=== PATIENT | female | born 1950 | race Two or more races ===

== ENCOUNTER 2017-03-20 12:12 | Inpatient (IN) | payer MEDICARE, MEDICAID ==
[~2017-03-20] VITALS: Ht 152.4 cm; Wt 81.6 kg
[2017-03-20] MEDS ORDERED: OXYCODONE HCL 10 MG TAB.SR.12H PO SCH (12:45)
[2017-03-20] MEDS ORDERED: FOLI0.4T2 PO (13:11)
[2017-03-20] MEDS ORDERED: MICO45CR11 VG (13:11)
[2017-03-20] MEDS ORDERED: GABA-534 PO (13:11)
[2017-03-20] MEDS ORDERED: CLOP75TA2 PO (13:11)
[2017-03-20] MEDS ORDERED: TRAZ-144 PO (13:11)
[2017-03-20] MEDS ORDERED: ALBU1.257 NEB (13:11)
[2017-03-20] MEDS ORDERED: QUET25TA PO (13:11)
[2017-03-20] MEDS ORDERED: METO25TA6 PO (13:11)
[2017-03-20] MEDS ORDERED: OMEP20CA10 PO (13:11)
[2017-03-20] MEDS ORDERED: DICL100G3 TP (13:11)
[2017-03-20] MEDS ORDERED: ALBU18HF2 IH (13:11)
[2017-03-20] MEDS ORDERED: POTA20TA83 PO (13:11)
[2017-03-20] MEDS ORDERED: FENT1PAT22 TP (13:11)
[2017-03-20] MEDS ORDERED: ATOR20TA PO (13:11)
[2017-03-20] MEDS ORDERED: METF500T4 PO (13:11)
[2017-03-20] MEDS ORDERED: LORA0.5T PO (13:11)
[2017-03-20] MEDS ORDERED: IPRA0.2S6 NEB (13:11)
[2017-03-20] MEDS ORDERED: GUAI480S10 PO (13:11)
[2017-03-20] MEDS ORDERED: CYCL-343 PO (13:11)
[2017-03-20] MEDS ORDERED: CYAN10006 IM (13:11)
[2017-03-20] MEDS ORDERED: ZOLP5TAB2 PO (13:11)
[2017-03-20] MEDS ORDERED: FLUO40CA8 PO (13:11)
[2017-03-20] MEDS ORDERED: ACET-2067 PO (13:11)
[2017-03-20] MEDS ORDERED: IV NORMAL SALINE 1000 ML BAG IV ONE (13:15)
--- NOTE | 2017-03-20 13:21 | NUR ---
Dr Hdez at bedside talking with pt.
[2017-03-20 13:29] LABS: BASOPHILS # (AUTO) 0.1 K/uL (0.0-8.0); BASOPHILS % (AUTO) 0.7 % (0.0-2.0); CREATININE 0.7 mg/dL (0.6-1.3); EOSINOPHILS # (AUTO) 0.2 K/uL (0.0-0.7); EOSINOPHILS % (AUTO) 2.7 % (0.0-7.0); HEMATOCRIT 42.9 % (37-47); HEMOGLOBIN 13.7 G/DL (12.0-16.0); LYMPHOCYTES # (AUTO) 2.8 K/UL (0.8-4.8); LYMPHOCYTES % (AUTO) 31.2 % (20.5-51.5); MEAN CORPUSCULAR HEMOGLOBIN 27.5 UUG (27.0-31.0); MEAN CORPUSCULAR HGB CONC 32 g/dL (32.0-37.0); MONOCYTES # (AUTO) 0.5 K/UL (0.1-1.30); MONOCYTES % (AUTO) 5.1 % (0.0-11.0); NEUTROPHILS # (AUTO) 5.4 K/UL (1.8-8.9); NEUTROPHILS % (AUTO) 60.3 % (38.5-71.5); PLATELET COUNT (AUTO) 310 K/UL (150-450); RED BLOOD CELL COUNT(AUTO) 4.99 MIL/UL (4.2-5.4)
[2017-03-20 13:35] LABS: BILIRUBIN,DIRECT 0.1 mg/dL (0.0-0.2); BILIRUBIN,TOTAL 0.3 mg/dL (0.2-1.0); TOTAL PROTEIN, SERUM 7.7 g/dL (6.4-8.2)
[2017-03-20 16:05] VITALS: BP 128/78
--- NOTE | 2017-03-20 16:15 | NUR ---
pt received from er via wheel chair for chest pain and failure to thrive,pt is axox4.orient the pt to room and surroundings , called for orders.
[2017-03-20] MEDS ORDERED: DEXTROSE 50% 50 ML DISP.SYRIN IV PRN (17:30)
[2017-03-20] MEDS ORDERED: ACETAMINOPHEN 325 MG TABLET PO PRN (18:00)
[2017-03-20] MEDS ORDERED: ALBUTEROL SULFATE 8 GM HFA.AER.AD IH PRN (18:00)
[2017-03-20] MEDS ORDERED: GUAIFENESIN/DEXTROMETHORPHAN 5 ML UDC PO PRN (18:00)
[2017-03-20] MEDS ORDERED: IPRATROPIUM BROMIDE 0.5 MG/2.5 ML NEBU NEB PRN (18:00)
[2017-03-20] MEDS ORDERED: ALBUTEROL SULFATE 1.25 MG/3 ML NEBU NEB PRN (18:00)
[2017-03-20] MEDS ORDERED: HOME MED MISCELLANEOUS TP PRN (18:00)
[2017-03-20] MEDS: METFORMIN HCL 500 MG TABLET PO SCH (18:25)
[2017-03-20 20:00] VITALS: BP 119/52
[2017-03-20] MEDS: QUETIAPINE FUMARATE 25 MG TABLET PO SCH (20:49)
[2017-03-20] MEDS: TRAZODONE 50 MG TABLET PO SCH (20:50)
[2017-03-20] MEDS: ZOLPIDEM 5 MG TABLET PO SCH (20:53)
[2017-03-20] MEDS ORDERED: ATORVASTATIN 20 MG TABLET PO SCH (21:00)
[2017-03-20] MEDS: CYCLOBENZAPRINE HCL 10 MG TABLET PO SCH (21:05)
[2017-03-20] MEDS: BLOOD SUGAR DIAGNOSTIC 1 EACH STRIP VI SCH (21:06)
[2017-03-20] MEDS: METOPROLOL TARTRATE 25 MG TABLET PO SCH (21:13)
[2017-03-20 23:51] LABS: *BILIRUBIN,URIN NEGATIVE (NEGATIVE); *BLOOD, URINE NEGATIVE (NEGATIVE); *CLARITY,URINE CLEAR (CLEAR); *COLOR,URINE YELLOW (YELLOW); *KETONES,URINE NEGATIVE (NEGATIVE); *PROTEIN,URINE NEGATIVE (NEGATIVE); *UROBILINOGEN,URINE 0.2 E.U./dl (NORMAL); LEUKOCYTE ESTERASE ,URINE NEGATIVE (NEGATIVE); NITRITE, URINE NEGATIVE (NEGATIVE); PH,URINE 7.5 (5.0-8.0); UGLUCOSE NEGATIVE (NEGATIVE)
[2017-03-21] VITALS: BP 119/87
[2017-03-21 00:52] LABS: BACTERIA,URINE NONE SEEN /HPF (NONE SEEN); RBC,URINE 0-3 /HPF (0-3); SQUAMOUS EPITHELIAL CELL,UR FEW /HPF (NONE SEEN); WBC,URINE NONE SEEN /HPF (0-3)
[2017-03-21 04:00] VITALS: BP 106/62
--- NOTE | 2017-03-21 05:52 | NUR ---
PATIENT SLEPT WELL, IN NO ACUTE DISTRESS. ACCUCHECKS ORDERED, NO EPISODES OF HYPO/HYPERGLYCEMIA NOTED. AMBULATES TO THE BATHROOM WITH ASSISTANCE, C/O OF KNEE PAIN. BREATHING TX PROVIDED ORDERED. URINE SPECIMEN SENT TO THE LAB. INSTRUCTED PATIENT TO USE CALL LIGHT WHEN ASSISTANCE IS NEEDED, PT VERBALIZED UNDERSTANDING. BED ALARM ON, WILL CONTINUE TO MONITOR.
[2017-03-21] MEDS: PANTOPRAZOLE SODIUM 40 MG TABLET.DR PO SCH (06:11)
[2017-03-21] MEDS: BLOOD SUGAR DIAGNOSTIC 1 EACH STRIP VI SCH ×4 (06:41→21:12)
[2017-03-21 06:48] LABS: BASOPHILS % (AUTO) 0.6 % (0.0-2.0); EOSINOPHILS # (AUTO) 0.2 K/uL (0.0-0.7); EOSINOPHILS % (AUTO) 3.6 % (0.0-7.0); HEMATOCRIT 39.1 % (37-47); HEMOGLOBIN 12.2 G/DL (12.0-16.0); LYMPHOCYTES # (AUTO) 2.8 K/UL (0.8-4.8); LYMPHOCYTES % (AUTO) 47.1 % (20.5-51.5); MEAN CORPUSCULAR HEMOGLOBIN 26.9 UUG (27.0-31.0); MEAN CORPUSCULAR HGB CONC 31 g/dL (32.0-37.0); MEAN CORPUSCULAR VOLUME 85.8 FL (81.0-99.0); MONOCYTES # (AUTO) 0.4 K/UL (0.1-1.30); NEUTROPHILS # (AUTO) 2.4 K/UL (1.8-8.9); NEUTROPHILS % (AUTO) 41.7 % (38.5-71.5); PLATELET COUNT (AUTO) 285 K/UL (150-450); RED BLOOD CELL COUNT(AUTO) 4.55 MIL/UL (4.2-5.4)
[2017-03-21 06:51] LABS: THYROID STIMULATING HORMONE 0.367 mIU/mL (0.358-3.740)
[2017-03-21 06:52] LABS: WHITE BLOOD COUNT (AUTO) 5.8 K/UL (4.0-11.2)
[2017-03-21 07:07] LABS: BILIRUBIN,TOTAL 0.6 mg/dL (0.2-1.0); CREATININE 0.7 mg/dL (0.6-1.3); MAGNESIUM 1.7 mg/dL (1.8-2.4); PHOSPHOROUS 3.9 mg/dL (2.5-4.9); TOTAL PROTEIN, SERUM 6.8 g/dL (6.4-8.2)
--- NOTE | 2017-03-21 08:14 | NUR ---
Patient reports 8/10 chest pain. Patient has history of ID and stent placement. Paged for orders. Dr. Dubon public relations analyst.
[2017-03-21] MEDS ORDERED: NITROGLYCERIN 0.3 MG/TAB BOTTLE SL STA ×2 (08:28→08:31)
[2017-03-21] MEDS: METFORMIN HCL 500 MG TABLET PO SCH ×2 (08:28→17:59)
[2017-03-21] MEDS: FOLIC ACID 0.4 MG TABLET PO SCH (08:32)
[2017-03-21] MEDS: CYCLOBENZAPRINE HCL 10 MG TABLET PO SCH ×2 (08:32→20:26)
[2017-03-21] MEDS: LORAZEPAM 0.5 MG TABLET PO SCH (08:32)
[2017-03-21] MEDS: METOPROLOL TARTRATE 25 MG TABLET PO SCH ×2 (08:44→20:27)
[2017-03-21] MEDS: POTASSIUM CHLORIDE 20 MEQ TAB.PRT.SR PO SCH (08:45)
[2017-03-21] MEDS: GABAPENTIN 300 MG CAPSULE PO SCH ×3 (08:45→17:56)
[2017-03-21] MEDS: MICONAZOLE NITRATE 2% VAG CREA 45 GM TUBE VG SCH ×2 (08:46→17:50)
[2017-03-21] MEDS: FLUOXETINE HCL 20 MG CAPSULE PO SCH (08:46)
[2017-03-21] MEDS: CLOPIDOGREL 75 MG TABLET PO SCH (08:46)
[2017-03-21] MEDS ORDERED: LORAZEPAM 0.5 MG TABLET PO SCH (09:00)
[2017-03-21] MEDS ORDERED: HOME MED MISCELLANEOUS PO SCH (09:00)
--- NOTE | 2017-03-21 09:00 | NUR ---
Patient chest pain has improved. Nitroglycerin given. Patient however continues to experience tailbone pain.
[2017-03-21] MEDS: INSULIN REGULAR, HUMAN 300 UNIT/3 ML VIAL SQ PRN (12:03)
[2017-03-21] MEDS: OXYCODONE HCL 5 MG TABLET PO PRN ×3 (12:09→21:13)
[2017-03-21 12:35] VITALS: BP 142/83
[2017-03-21 16:00] VITALS: BP 125/66
[2017-03-21] MEDS: MAGNESIUM SULFATE/D5W 100 ML IV SCH ×2 (16:35→17:50)
[2017-03-21 19:00] VITALS: BP 107/51
[2017-03-21] MEDS: QUETIAPINE FUMARATE 25 MG TABLET PO SCH (20:26)
[2017-03-21] MEDS: ZOLPIDEM 5 MG TABLET PO SCH (20:27)
[2017-03-21] MEDS: TRAZODONE 50 MG TABLET PO SCH (20:27)
[2017-03-21] MEDS: ATORVASTATIN 40 MG TABLET PO SCH (21:12)
[2017-03-21 23:59] VITALS: BP 114/55
[2017-03-22 04:00] VITALS: BP 118/60
[2017-03-22] MEDS: OXYCODONE HCL 5 MG TABLET PO PRN ×4 (04:56→20:30)
[2017-03-22] MEDS: PANTOPRAZOLE SODIUM 40 MG TABLET.DR PO SCH (04:57)
[2017-03-22] MEDS: BLOOD SUGAR DIAGNOSTIC 1 EACH STRIP VI SCH ×4 (06:09→20:31)
[2017-03-22 07:09] LABS: CREATININE 0.7 mg/dL (0.6-1.3); MAGNESIUM 1.7 mg/dL (1.8-2.4); POTASSIUM 4.2 mmol/L (3.5-5.1)
--- NOTE | 2017-03-22 07:41 | NUR ---
pt received in bed awake.pt is axox4.breakfast served.v/s are stable.
[2017-03-22] MEDS: FOLIC ACID 0.4 MG TABLET PO SCH (08:03)
[2017-03-22] MEDS: POTASSIUM CHLORIDE 20 MEQ TAB.PRT.SR PO SCH (08:03)
[2017-03-22] MEDS: METFORMIN HCL 500 MG TABLET PO SCH ×2 (08:03→17:17)
[2017-03-22] MEDS: CLOPIDOGREL 75 MG TABLET PO SCH (08:03)
[2017-03-22] MEDS: LORAZEPAM 0.5 MG TABLET PO SCH (08:03)
[2017-03-22] MEDS: METOPROLOL TARTRATE 25 MG TABLET PO SCH ×2 (08:04→20:35)
[2017-03-22] MEDS: GABAPENTIN 300 MG CAPSULE PO SCH ×3 (08:04→16:05)
[2017-03-22] MEDS: FLUOXETINE HCL 20 MG CAPSULE PO SCH (08:04)
[2017-03-22] MEDS: MICONAZOLE NITRATE 2% VAG CREA 45 GM TUBE VG SCH ×2 (08:04→16:05)
[2017-03-22] MEDS: CYCLOBENZAPRINE HCL 10 MG TABLET PO SCH ×2 (08:04→20:33)
[2017-03-22] MEDS ORDERED: FENTANYL 50 MCG/HR PATCH TD SCH (09:00)
[2017-03-22] MEDS: INSULIN REGULAR, HUMAN 300 UNIT/3 ML VIAL SQ PRN (10:37)
[2017-03-22] MEDS: MAGNESIUM SULFATE/D5W 100 ML IV SCH ×2 (11:08→12:00)
[2017-03-22 11:38] VITALS: BP_SYST 110; BP_SYST 119; BP_DIAS 57; BP_DIAS 75
[2017-03-22] MEDS ORDERED: MAGNESIUM SULFATE/D5W 100 ML IV SCH (12:15)
--- NOTE | 2017-03-22 14:30 | NUR ---
The patient's discharge plan is to go to [facility] [ - Nadia - ; ; [facility], [place] [address]] via [facility]. Spoke to Nadia, admissions from [facility], and she confirmed that they will admit the patient once stable. The patient is aware and in agreement with her discharge plan. Nadia is requesting to be called once the discharge is certain. Udpated the electrical discharge machine operator, Lucita.
[2017-03-22 16:10] VITALS: BP 133/71
[2017-03-22 20:00] VITALS: BP 135/78
--- NOTE | 2017-03-22 20:00 | NUR ---
RECEIVED PATIENT AWAKE IN BED. A/O X4. PATIENT IS UPSET REGARDING PAIN MEDICATION. C/O PAIN, GENERALIZED 5/10. NO RESP. DISTRESS NOTED. VSS. HEPLOCK NOTED TO LEFT FA #20 GAUGE. CALL LIGHT IN REACH, ALL NEEDS ATTENDED. WILL CONTINUE TO MONITOR.
--- NOTE | 2017-03-22 20:30 | NUR ---
PATIENT GIVEN OXYIR 5MG PO PRN ORDERED FOR PAIN. WILL CONTINUE TO MONITOR. ALL NEEDS ATTENDED.
[2017-03-22] MEDS: TRAZODONE 50 MG TABLET PO SCH (20:31)
[2017-03-22] MEDS: ATORVASTATIN 40 MG TABLET PO SCH (20:33)
[2017-03-22] MEDS: QUETIAPINE FUMARATE 25 MG TABLET PO SCH (20:35)
[2017-03-22] MEDS: ZOLPIDEM 5 MG TABLET PO SCH (20:51)
--- NOTE | 2017-03-22 22:00 | NUR ---
PATIENT ASLEEP. NO RESP. DISTRESS NOTED. NO S/S OF PAIN OR DISCOMFORT. CALL LIGHT IN REACH. ALL NEEDS ATTENDED. WILL CONTINUE TO MONITOR.
[2017-03-23 05:20] VITALS: BP 114/62
--- NOTE | 2017-03-23 05:49 | NUR ---
PATIENT ASLEEP IN BED. EASILY AROUSABLE. SLEPT WELL THROUGHOUT THE NIGHT. VSS. CALL LIGHT IN REACH. ALL NEEDS ATTENDED. WILL CONTINUE TO MONITOR.
[2017-03-23] MEDS: PANTOPRAZOLE SODIUM 40 MG TABLET.DR PO SCH (06:07)
[2017-03-23] MEDS: BLOOD SUGAR DIAGNOSTIC 1 EACH STRIP VI SCH ×2 (06:24→10:52)
--- NOTE | 2017-03-23 07:30 | NUR ---
PT RECEIVED IN BED AWAKE.V/S ARE STABLE ,NO C/O PAIN NOTED,V/S ARE STABLE/ASSESSMENT DONE.
[2017-03-23 07:43] LABS: CREATININE 0.8 mg/dL (0.6-1.3); MAGNESIUM 1.8 mg/dL (1.8-2.4); POTASSIUM 4.1 mmol/L (3.5-5.1)
[2017-03-23] MEDS: OXYCODONE HCL 5 MG TABLET PO PRN ×2 (07:44→12:28)
[2017-03-23] MEDS: CYCLOBENZAPRINE HCL 10 MG TABLET PO SCH (08:01)
[2017-03-23] MEDS: METFORMIN HCL 500 MG TABLET PO SCH (08:01)
[2017-03-23] MEDS: LORAZEPAM 0.5 MG TABLET PO SCH (08:01)
[2017-03-23] MEDS: FOLIC ACID 0.4 MG TABLET PO SCH (08:01)
[2017-03-23] MEDS: GABAPENTIN 300 MG CAPSULE PO SCH ×2 (08:01→12:31)
[2017-03-23] MEDS: CLOPIDOGREL 75 MG TABLET PO SCH (08:01)
[2017-03-23] MEDS: FLUOXETINE HCL 20 MG CAPSULE PO SCH (08:01)
[2017-03-23] MEDS: METOPROLOL TARTRATE 25 MG TABLET PO SCH (08:02)
[2017-03-23] MEDS: POTASSIUM CHLORIDE 20 MEQ TAB.PRT.SR PO SCH (08:02)
[2017-03-23] MEDS: MICONAZOLE NITRATE 2% VAG CREA 45 GM TUBE VG SCH (08:08)
[2017-03-23] MEDS ORDERED: FENTANYL 75 MCG/HR PATCH EACH TD SCH (09:00)
[2017-03-23 11:00] VITALS: BP 110/63
[2017-03-23] MEDS: INSULIN REGULAR, HUMAN 300 UNIT/3 ML VIAL SQ PRN (11:27)
--- NOTE | 2017-03-23 11:30 | NUR ---
SEEN BY DR KEMP
[2017-03-23] MEDS ORDERED: PANT40TA2 PO (11:41)
--- NOTE | 2017-03-23 14:51 | NUR ---
D/C ORDERS RECEIVED NOTED AND CARRIED OUT.D/C INSTRUCTIONS AND EDUCATIONS GIVEN TO THE PT .PT VERBALIZED UNDERSTANDING ALL THE INSTRUCTION.D/C HEPLOCK PER MD ORDERS.PT LEFT THE FACILITY VIA AMBULANCES IN STABLE CONDITION.
[2017-04-08] MEDS ORDERED: CYANOCOBALAMIN 1000 MCG/ML VIAL IM SCH (09:00)
== END 2017-03-23 14:57 | DRG 311 ==
LOC: ER 12:21 → TELE 15:27 → MED 03-22 12:39
PROVIDERS: ADMIT Internal Medicine; ATTEND Internal Medicine
DX: I24.9 Acute ischemic heart disease, unspecified (principal); F11.20 Opioid dependence, uncomplicated; R62.7 Adult failure to thrive; E11.9 Type 2 diabetes mellitus without complications; J44.9 Chronic obstructive pulmonary disease, unspecified; Z98.61 Coronary angioplasty status; Z86.73 Personal history of transient ischemic attack (TIA), and cerebral infarction without residual deficits; Z82.49 Family history of ischemic heart disease and other diseases of the circulatory system; Z79.84 Long term (current) use of oral hypoglycemic drugs; I25.2 Old myocardial infarction; I25.10 Atherosclerotic heart disease of native coronary artery without angina pectoris; I10 Essential (primary) hypertension; M48.00 Spinal stenosis, site unspecified; Z88.1 Allergy status to other antibiotic agents; Z88.2 Allergy status to sulfonamides; G89.4 Chronic pain syndrome; E53.9 Vitamin B deficiency, unspecified; Z79.899 Other long term (current) drug therapy; M19.90 Unspecified osteoarthritis, unspecified site
CPT/HCPCS: 36415; 70030-TC; 71010; 72220; 73030; 73560; 73562; 82746; 83690; 83735; 84100; 84443; 85025; 85651; 85730; 87086; 93005; 93307; 94664; 97161; A4663; J1815; J3475; J3590; J7030